=== PATIENT | female | born 1940 | race Caucasian/White ===

== ENCOUNTER 2018-03-06 01:08 | Inpatient (IN) ==
[2018-03-06 02:31] LABS: Baso # (Auto) 0.2 th/mm3 (0.0-0.2); Baso % (Auto) 1.1 % (0.0-2.0); Eos # (Auto) 0.1 th/mm3 (0.0-0.4); Eos % (Auto) 0.8 % (0.0-4.0); Hematocrit 38.4 % (35.0-46.0); Hemoglobin 12.7 gm/dL (11.6-15.3); Lymph # (Auto) 2.5 th/mm3 (1.0-4.8); Lymph % (Auto) 17.8 % (9.0-44.0); Mean Corpuscular HGB Conc 33.1 % (32.0-36.0); Mean Corpuscular Hemoglobin 30.9 pg (27.0-34.0); Mean Corpuscular Volume 93.3 fL (80.0-100.0); Mean Platelet Volume 9.1 fL (7.0-11.0); Mono % (Auto) 7.2 % (0.0-8.0); Neut # (Auto) 10.5 th/mm3 (1.8-7.7); Neut % (Auto) 73.1 % (16.0-70.0); Platelet Count 221 th/mm3 (150-450); Red Blood Count 4.12 mil/mm3 (4.00-5.30); Red Cell Distribution Width 14.2 % (11.6-17.2); White Blood Count 14.3 th/mm3 (4.0-11.0)
[2018-03-06 02:50] LABS: Bilirubin,Urine Negative (Negative); Clarity,Urine Clear (Clear); Color,Urine Yellow (Yellw/Straw); Glucose,Urine (UA) Negative (Negative); Leukocyte Esterase,Urine Negative (Negative); Mucus,Urine Few /lpf (Occasional); Nitrite,Urine Negative (Negative); Specific Gravity,Urine 1.023 (1.002-1.035)
[2018-03-06 02:52] LABS: Alanine Aminotransferase 14 U/L (10-53); Albumin 3.3 g/dL (3.4-5.0); Anion Gap 7 meq/L (5-15); Aspartate Aminotransferase 16 U/L (15-37); Blood Urea Nitrogen 12 mg/dL (7-18); Calcium 8.1 mg/dL (8.5-10.1); Chloride 101 meq/L (98-107); Glomerular Filtration Rate 53 mL/min (>89); Glucose,Random 89 mg/dL (74-106); Potassium 3.8 meq/L (3.5-5.1); Sodium 140 meq/L (136-145)
[2018-03-06 02:56] LABS: Alkaline Phosphatase 54 U/L (45-117); Total Protein 7.1 g/dL (6.4-8.2); Troponin I 0.08 ng/mL (0.02-0.05)
--- NOTE | 2018-03-06 03:01 | XR ---
EXAM DATE: 03/06/2018 2:44 AM EDT AGE/SEX: 77 years / Female INDICATIONS: Shortness of breath. CLINICAL DATA: This is the patient's initial encounter. Patient reports that signs and symptoms have been present for 1 day and indicates a pain score of 0/10. MEDICAL/SURGICAL HISTORY: None. None. COMPARISON: No prior exams available for comparison. FINDINGS: Portable AP view of the chest demonstrates a normal-sized cardiac silhouette. No effusion, consolidat ion, or pneumothorax is identified. The bones and soft tissues demonstrate no acute finding. EKG line s overlie the patient. CONCLUSION: No acute cardiopulmonary abnormality is identified. Electronically signed by: Librado Munroe MD 03/06/2018 3:00 AM EDT
--- NOTE | 2018-03-06 03:40 | CT ---
EXAM DATE: 03/06/2018 3:24 AM EDT AGE/SEX: 77 years / Female INDICATIONS: Weakness and confusion. CLINICAL DATA: This is the patient's initial encounter. Patient reports that signs and symptoms have been present for 1 day and indicates a pain score of 0/10. MEDICAL/SURGICAL HISTORY: Hypertension. Lupus. None. RADIATION DOSE: 38.21 CTDI (mGy) COMPARISON: No prior exams available for comparison. TECHNIQUE: CT of the head without contrast. Using automated exposure control and adjustment of the mA and/or kV according to patient size, radiation dose was kept as low as reasonably achievable to ob tain optimal diagnostic quality images. DICOM format image data is available electronically for revi ew and comparison. FINDINGS: Cerebrum: There is mild to moderate generalized atrophy. Ventricles are normal in size given the deg ree of atrophy present. There is mild periventricular white matter low-attenuation. No midline shift, mass lesion, hemorrhage or acute infarction. No extraaxial fluid collections are seen. Posterior Fossa: The cerebellum and brainstem demonstrate no acute abnormality. The 4th ventricle is midline. The cerebellopontine angle is within normal limits. Extracranial: The visualized sinuses are clear. Skull: The calvaria is intact. No skull fracture. CONCLUSION: 1. No acute intracranial abnormality is identified. 2. There is generalized atrophy and mild periventricular white matter change most likely representin g chronic microvascular ischemia. . Electronically signed by: Librado Munroe MD 03/06/2018 3:39 AM EDT
--- NOTE | 2018-03-06 04:04 | ED ---
HPI General Chief complaint: Weakness Stated complaint: confusion/weakness/diareha Time Seen by Provider: 03/06/18 01:39 Source: patient and family Mode of arrival: wheelchair Limitations: no limitations History of Present Illness HPI narrative: Is a 77-year-old woman presents to the emergency department complaining of weakness. She has felt ill throughout the day today. She drove herself to the store but then the bystander called family to come get her because she was confused, patient does not remember this at all. They fed her and got her back home. But another family came to check on her she was too weak to get off the couch, she was slumped to the side, too weak to move. She had progressive weakness, so they brought her to the emergency department. Patient denies any history of previous similar problems. She does take some sedating medications but denies having taken any change in dose. She is awake and alert, just weak and unable to get up Related Data Home Medications Medication Instructions Recorded Confirmed alprazolam 0.5 mg PO BID PRN 03/06/18 03/06/18 atenolol 50 mg PO DAILY 03/06/18 03/06/18 escitalopram oxalate 20 mg PO DAILY 03/06/18 03/06/18 gabapentin 400 mg PO TID 03/06/18 03/06/18 hydrocodone-acetaminophen 1 tab PO Q6H PRN 03/06/18 03/06/18 hydroxychloroquine 200 mg PO BID 03/06/18 03/06/18 omeprazole 20 mg PO DAILY 03/06/18 03/06/18 triamterene-hydrochlorothiazid 1 tab PO DAILY 03/06/18 03/06/18 Allergies Allergy/AdvReac Type Severity Reaction Status Date / Time No Known Allergies Allergy Verified 03/06/18 01:28 Review of Systems ROS: all other systems reviewed are negative [facility] Medical History Medical History Hypertension (Acute) Lupus (Acute) Social History Social History Substance History: No History of Abuse Second Hand Smoke Exposure: No Smoking Status: Former smoker How Often Do You Have a Drink Containing Alcohol: Never Recent Travel in [facility] within the Last 8 Weeks: No Recent Out of Country Travel within the Last 8 Weeks: No Immunization History Tetanus Immunization: Unsure Hx Influenza Vaccine This Season: No Exam Narrative Exam Narrative: GENERAL: 77-year-old woman, generally well-appearing, no acute distress. SKIN: Focused skin assessment warm/dry. HEAD: Atraumatic. Normocephalic. EYES: Pupils equal and round. No scleral icterus. No injection or drainage. ENT: No nasal bleeding or discharge. Mucous membranes pink and moist. NECK: Trachea midline. No JVD. CARDIOVASCULAR: Regular rate and rhythm. No murmur appreciated. RESPIRATORY: No accessory muscle use. Clear to auscultation. Breath sounds equal bilaterally. GASTROINTESTINAL: Abdomen soft, non-tender, nondistended. Hepatic and splenic margins not palpable. MUSCULOSKELETAL: No obvious deformities. No clubbing. No cyanosis. No edema. NEUROLOGICAL: Awake and alert. No obvious cranial nerve deficits. At that she may have a suggestion of some right-sided facial droop however it is not definite. Motor grossly within normal limits. Normal speech. PSYCHIATRIC: Appropriate mood and affect; insight and judgment normal. Course Initial Documented Vital Signs Temperature 99.0 F 03/06/18 01:13 Pulse Rate 66 03/06/18 01:13 Respiratory Rate 18 03/06/18 01:13 Blood Pressure 143/87 H 03/06/18 01:13 Pulse Oximetry 96 03/06/18 01:13 Last Documented Vital Signs Temperature 99.0 F 03/06/18 01:13 Pulse Rate 66 03/06/18 02:08 Respiratory Rate 20 03/06/18 01:36 Blood Pressure 135/62 03/06/18 01:36 Pulse Oximetry 93 L 03/06/18 02:21 Medical Decision Making [facility] Narrative Medical decision making narrative: 77-year-old woman with generalized weakness, etiology is unclear. She has some urinary symptoms as well. Urine does not show any definite pyuria. I thought she had is some suggestion of of right- sided facial droop initially, this really did not kay out overall her neuro exam seems generally unremarkable. Troponins minimally bump. Do not see any evidence of DC otherwise. At this point recommend admission for further evaluation rule out stroke, rule out ACS, serial enzymes. Medical Screen Exam Complete: Yes Emergency Medical Condition: Yes Lab Data Lab results reviewed: Yes I reviewed the patient's lab results. Result diagrams: 03/06/18 02:10 03/06/18 02:10 Lab Results 03/06/18 03/06/18 03/06/18 Range/Units 02:10 02:10 02:20 WBC 14.3 H (4.0-11.0) th/mm3 RBC 4.12 (4.00-5.30) mil/mm3 Hgb 12.7 (11.6-15.3) gm/dL Hct 38.4 (35.0-46.0) % MCV 93.3 (80.0-100.0) fL MCH 30.9 (27.0-34.0) pg MCHC 33.1 (32.0-36.0) % RDW 14.2 (11.6-17.2) % Plt Count 221 (150-450) th/mm3 MPV 9.1 (7.0-11.0) fL Neut % (Auto) 73.1 H (16.0-70.0) % Lymph % (Auto) 17.8 (9.0-44.0) % [place] % (Auto) 7.2 (0.0-8.0) % Eos % (Auto) 0.8 (0.0-4.0) % Baso % (Auto) 1.1 (0.0-2.0) % Neut # (Auto) 10.5 H (1.8-7.7) th/mm3 Lymph # (Auto) 2.5 (1.0-4.8) th/mm3 [place] # (Auto) 1.0 H (0.0-0.9) th/mm3 Eos # (Auto) 0.1 (0.0-0.4) th/mm3 Baso # (Auto) 0.2 (0.0-0.2) th/mm3 WBC Differential . Differential Comment Auto diff final Sodium 140 (136-145) meq/L Potassium 3.8 (3.5-5.1) meq/L Chloride 101 (98-107) meq/L Carbon Dioxide 32.0 (21.0-32.0) meq/L Anion Gap 7 (5-15) meq/L BUN 12 (7-18) mg/dL Creatinine 1.01 H (0.50-1.00) mg/dL Estimated GFR 53 L (>89) mL/min Random Glucose 89 (74-106) mg/dL Calcium 8.1 L (8.5-10.1) mg/dL Total Bilirubin 0.4 (0.2-1.0) mg/dL AST 16 (15-37) U/L ALT 14 (10-53) U/L Alkaline Phosphatase 54 (45-117) U/L Troponin I 0.08 H (0.02-0.05) ng/mL Total Protein 7.1 (6.4-8.2) g/dL Albumin 3.3 L (3.4-5.0) g/dL Urine Color Yellow (Yellw/Straw) Urine Clarity Clear (Clear) Urine pH 5.0 (5.0-8.5) Ur Specific [place] 1.023 (1.002-1.035) Urine Protein Negative (Neg-Trace) mg/dL Urine Glucose (UA) Negative (Negative) mg/dL Urine Ketones Negative (Negative) mg/dL Urine Occult Blood Small H (Negative) Urine Nitrate Negative (Negative) Urine Bilirubin Negative (Negative) Urine Urobilinogen Less than 2 (Less than 2) mg/dL Ur Leukocyte Esterase Negative (Negative) Urine RBC 6 H (0-3) /hpf Urine WBC 1 (0-5) /hpf Urine Mucus Few H (Occasional) /lpf Micro UA Comment Cath-culture not ind Ur Microscopic Review Not Reportable Urine Culture Comments Cath-cult not ind Imaging Data Radiologist's impression: Head CT 03/06/18 02:06 CONCLUSION: 1. No acute intracranial abnormality is identified. 2. There is generalized atrophy and mild periventricular white matter change most likely representing chronic microvascular ischemia. . Chest X-Ray 03/06/18 02:07 CONCLUSION: No acute cardiopulmonary abnormality is identified. Negative ECG Data Attestation: I personally reviewed and interpreted this ECG as follows: Interpretation: Normal sinus rhythm at a rate is 68, normal axis, normal intervals, no acute ischemia. Discharge Plan Discharge Disposition Patient Disposition: 30 Still Patient Physicians Team ED Provider: Sergio Nayak Primary Care Provider: Sanford Lindo Attending Provider: Daniel Yeung Discharge Interventions Interventions: Vital Signs Last Done: 03/06/18 01:36 Status ED Status: Admitted Patient
[2018-03-06] MEDS ORDERED: Acetaminophen 325 MG Tablet PO PRN (07:55)
[2018-03-06 09:08] LABS: Troponin I 0.08 ng/mL (0.02-0.05)
[2018-03-06 09:20] LABS: CKMB Percent 0.7 % (0.0-4.0); Creatine Kinase MB 2.1 ng/mL (0.5-3.6)
--- NOTE | 2018-03-06 09:59 | P.HPIM ---
History of Present Illness Primary Care Physician: Sanford Lindo MD Chief Complaint: Generalized weakness, confusion History of Present Illness: Mrs. Cedillo is a pleasant 77 y/o female with Lupus, HTN, Hyperlipidemia, and asthma who was [place] the [place] [facility] for generalized weakness and confusion. I spoke with the pts son over the phone this morning who helps provide history as the pt is somewhat of a difficult historian. He reports that his had seen the pt around 1500 yesterday afternoon and she was doing fine. Then in the afternoon the pt had reportedly gone to [place] and was found by a bystander to be very weak and confused. The bystander called the pts son who came to pick her up. The pt reports that she felt ill throughout the day yesterday but couldn't specify why. Her son states that he thought initially that the pt may have taken an extra hydrocodone but the pt is unclear on this. Her son fed her and got her back home, but she was too weak to get off the couch, she was slumped to the side, too weak to move. This is what prompted her evaluation in the ED. This morning pt is more AAOx3 but she has a difficulty with giving history regarding what happened yesterday. She does report that she has had a cough for a few days and a sore throat. Denies any fevers or chills. She reports that her grandson and nephew had been spending time with her lately and both had recently had pneumonia. Her has Alzheimer dementia and was recently put into a alf and pt reports that she has been spending a lot of time at the alf as well. Her CXR in the ED was unrevealing. Her WBC count was elevated at 14 at admission. Denies any vomiting, diarrhea, constipation, headache, dizziness, or palpitations. Past Medical Hx: Asthma Anxiety/Depression Arthritis Chronic pain GERD HTN Hyperlipidemia Lupus RITA Multiple thyroid nodules Vertigo 2D echo (12/03/14) - Mild aortic sclerosis without stenosis - Mildly dilated left atrial chamber - Estimated EF 79% - Mild Mitral regurg, trace tricuspid regurg Past Surgical Hx: Partial thyroidectomy Family Hx: Noncontributory Social Hx: Denies any alcohol, tobacco or illicit drug use - Diagnosis (1) Generalized weakness (2) Confusion (3) HTN (hypertension) (4) Hyperlipidemia (5) Asthma Inpatient Certification: I certify that the inpatient services were ordered in accordance with Medicare regulations governing the order. This includes certification that hospital inpatient services are reasonable and necessary and in the case of services not specified as inpatient-only under 42 CFR 419.22(n), that they are appropriately provided as inpatient services in accordance to with the 2-midnight benchmark under 43 CFR 412.3(e) Review of Systems Constitutional: Reports weakness, Denies chills, Denies fever(s), Denies headache(s) Eyes: Denies double vision, Denies loss of vision Ears, Nose, Mouth, and Throat: Reports sore throat, Denies dizziness, Denies headache(s), Denies nasal discharge, Denies post nasal drip, Denies tongue swelling Cardiovascular: Denies chest pain, Denies shortness of breath Respiratory: Reports cough, Denies coughing up blood, Denies excessive phlegm production, Denies shortness of breath with activity Gastrointestinal: Denies change in stools, Denies constipation, Denies loose stools, Denies vomiting Genitourinary: Denies urinary incontinence, Denies urinary urgency Musculoskeletal: Denies back pain, Denies joint pain Skin/Breast: Denies rash Neurologic: Reports confusion, Reports memory loss PMFSH - History History Provided By: Patient - Medical History Medical History: Medical History (Last Reviewed 03/06/18 @ 04:02 by Sergio Nayak MD) Hypertension Lupus - Tobacco History Second Hand Smoke Exposure: No Smoking Status: Former smoker - Alcohol History How Often Do You Have a Drink Containing Alcohol: Never - Substance Use History Substance History: No History of Abuse - Travel History Recent Travel in the [place] Within the Last 8 Weeks: No Recent Travel Out of the Country Within the Last 8 Weeks: No - Immunization History Tetanus Immunization: Unsure Hx Influenza Vaccine This Season: No Medications and Allergies Active Medications: Active Medications Acetaminophen (Tylenol) 650 mg PO Q4H PRN PRN Reason: Temp > 100.4 Al Hydroxide/Mg Hydroxide (Milk Of Magnesia Liq) 30 ml PO Q12H PRN PRN Reason: Mild Constipation Atenolol (Tenormin) 50 mg PO DAILY GARY Escitalopram Oxalate (Lexapro) 20 mg PO DAILY GARY Ondansetron HCl (Zofran Inj) 4 mg IV.PUSH Q6H PRN PRN Reason: NAUSEA OR VOMITING Pantoprazole Sodium (Protonix) 20 mg PO DAILY GARY Senna/Docusate Sodium (Josie-Colace) 1 tab PO BID GARY Sodium Chloride (Ns Flush) 2 ml IV.FLUSH PRN PRN PRN Reason: FLUSH AFTER USING IV ACCESS Allergies Allergy/AdvReac Type Severity Reaction Status Date / Time No Known Allergies Allergy Verified 03/06/18 01:28 Home Medications Medication Instructions Recorded Confirmed Type alprazolam 0.5 mg PO BID PRN 03/06/18 03/06/18 History atenolol 50 mg PO DAILY 03/06/18 03/06/18 History escitalopram oxalate 20 mg PO DAILY 03/06/18 03/06/18 History gabapentin 400 mg PO TID 03/06/18 03/06/18 History hydrocodone-acetaminophen 1 tab PO Q6H PRN 03/06/18 03/06/18 History hydroxychloroquine 200 mg PO BID 03/06/18 03/06/18 History omeprazole 20 mg PO DAILY 03/06/18 03/06/18 History triamterene-hydrochlorothiazid 1 tab PO DAILY 03/06/18 03/06/18 History Exam Vital signs: Vital Signs 03/06/18 01:13 03/06/18 01:36 03/06/18 02:08 Temperature 99.0 F Pulse Rate 66 66 66 Respiratory Rate 18 20 Blood Pressure 143/87 H 135/62 Pulse Oximetry 96 93 L 03/06/18 02:21 03/06/18 06:17 03/06/18 08:39 Temperature Pulse Rate 73 Respiratory Rate 17 18 Blood Pressure 146/63 H Pulse Oximetry 93 L 94 L Narrative: GENERAL: NAD, Awake and alert SKIN: Warm and dry. HEENT: Atraumatic. Normocephalic. Pupils equal and round. No scleral icterus. No injection or drainage. No nasal bleeding or discharge. Mucous membranes pink and moist. NECK: Trachea midline. No JVD. Tonsillar lymphadenopathy and tenderness on the left side CARDIO: Regular rate and rhythm. 2-3/6 BERT RESP: No accessory muscle use. Wheezing and crackles at the bases bilaterally ABD: +BS, soft, non-tender, nondistended. EXT: Minimal bilateral pedal edema. No obvious deformities. NEURO: Awake and alert.Motor grossly within normal limits. Five out of 5 muscle strength in the arms and legs. Normal speech. PSYCH: Appropriate mood and affect; insight and judgment normal. Results - Labs CBC & Chem 7: 03/06/18 02:10 03/06/18 02:10 Labs: Short CBC 03/06/18 Range/Units 02:10 WBC 14.3 H (4.0-11.0) th/mm3 Hgb 12.7 (11.6-15.3) gm/dL Hct 38.4 (35.0-46.0) % Plt Count 221 (150-450) th/mm3 BMP 03/06/18 02:10 Sodium 140 Potassium 3.8 Chloride 101 Carbon Dioxide 32.0 BUN 12 Creatinine 1.01 H Calcium 8.1 L Cardiac Enzymes 03/06/18 03/06/18 03/06/18 Range/Units 02:10 04:00 08:20 Total Creatine Kinase 297 H (26-192) U/L Troponin I 0.08 H 0.08 H 0.08 H (0.02-0.05) ng/mL Liver Function 03/06/18 Range/Units 02:10 Total Bilirubin 0.4 (0.2-1.0) mg/dL AST 16 (15-37) U/L ALT 14 (10-53) U/L Alkaline Phosphatase 54 (45-117) U/L Albumin 3.3 L (3.4-5.0) g/dL Urine 03/06/18 Range/Units 02:20 Urine Color Yellow (Yellw/Straw) Urine Clarity Clear (Clear) Urine pH 5.0 (5.0-8.5) Ur Specific [place] 1.023 (1.002-1.035) Urine Protein Negative (Neg-Trace) mg/dL Urine Glucose (UA) Negative (Negative) mg/dL - Imaging Impressions Head CT 03/06/18 02:06 CONCLUSION: 1. No acute intracranial abnormality is identified. 2. There is generalized atrophy and mild periventricular white matter change most likely representing chronic microvascular ischemia. Chest X-Ray 03/06/18 02:07 CONCLUSION: No acute cardiopulmonary abnormality is identified. Caprini VTE Risk Assessment Caprini VTE Risk Assessment: Moderate/High Risk (score >= 2) Caprini Risk Assessment Model: Point Value = 1 Point Value = 2 Point Value = 3 Point Value = 5 Age 41-60 Minor surgery BMI > 25 kg/m2 Swollen legs Varicose veins or History of unexplained or recurrent spontaneous Oral contraceptives or hormone replacement Sepsis (< 1 month) Serious lung disease, including pneumonia (< 1 month) Abnormal pulmonary function Acute myocardial infarction Congestive heart failure (< 1 month) History of inflammatory bowel disease Medical patient at bed rest Age 61-74 Arthroscopic surgery Major open surgery (> 45 min) Laparoscopic surgery (> 45 min) Malignancy Confined to bed (> 72 hours) Immobilizing plaster cast Central venous access Age >= 75 History of VTE Family history of VTE Factor V Leiden Prothrombin [id number] Lupus anticoagulant Anticardiolipin antibodies Elevated serum homocysteine Heparin-induced thrombocytopenia Other congenital or acquired thrombophilia Stroke (< 1 month) Elective arthroplasty Hip, pelvis, or leg fracture Acute spinal cord injury (< 1 month) Prophylaxis Regimen: Total Risk Factor Score Risk Level Prophylaxis Regimen 0-1 Low Early ambulation 2 Moderate Order ONE of the following: *Sequential Compression Device (SCD) *Heparin 5000 units SQ BID 3-4 Higher Order ONE of the following medications: *Heparin 5000 units SQ TID *Enoxaparin/Lovenox 40 mg SQ daily (WT < 150 kg, CrCl > 30 mL/min) *Enoxaparin/Lovenox 30 mg SQ daily (WT < 150 kg, CrCl > 10-29 mL/min) *Enoxaparin/Lovenox 30 mg SQ BID (WT < 150 kg, CrCl > 30 mL/min) AND/OR *Sequential Compression Device (SCD) 5 or more Highest Order ONE of the following medications: *Heparin 5000 units SQ TID (Preferred with Epidurals) *Enoxaparin/Lovenox 40 mg SQ daily (WT < 150 kg, CrCl > 30 mL/min) *Enoxaparin/Lovenox 30 mg SQ daily (WT < 150 kg, CrCl > 10-29 mL/min) *Enoxaparin/Lovenox 30 mg SQ BID (WT < 150 kg, CrCl > 30 mL/min) AND *Sequential Compression Device (SCD) Assessment and Plan - Assessment (1) Generalized weakness Code(s): R53.1 - Weakness Status: Acute Plan: Generalized weakness Confusion Possible CAP - Pt is a 77 y/o female with Lupus, HTN, Hyperlipidemia, and asthma who was brought to the ED at [facility] on 03[place]06[place] for generalized weakness and confusion. Pt reports that she has had a cough for a few days and a sore throat. Denies any fevers or chills. She reports that her grandson and nephew had been spending time with her lately and both had recently had pneumonia. Her has Alzheimer dementia and was recently put into a alf and pt reports that she has been spending a lot of time at the alf as well. - Her CXR in the ED was unrevealing. - Her WBC count was elevated at 14 in the ED - UA was negative. - Pt with low grade temp this morning, 99.7 - Obtain blood cultures - Repeat CXR this morning - After blood cultures are drawn given Azithromycin and Rocephin IV - Duonebs Q4H scheduled and Q2H PRN - Supplemental O2 as needed - Tylenol PRN - Zofran PRN - ARIEL - PT evaluation - DVT prophylaxis with SCDs HTN - Cont. Atenolol, hold diuretic for now - Repeat labs in AM - Monitor BP Lupus - Cont. home meds - Hold narcotics and benzos as pt has had some confusion (2) Confusion Code(s): R41.0 - Disorientation, unspecified Status: Acute (3) HTN (hypertension) Code(s): I10 - Essential (primary) hypertension Status: Acute (4) Hyperlipidemia Code(s): E78.5 - Hyperlipidemia, unspecified Status: Acute (5) Asthma Code(s): J45.909 - Unspecified asthma, uncomplicated Status: Acute
--- NOTE | 2018-03-06 10:42 | XR ---
EXAM DATE: 03/06/2018 10:21 AM EDT AGE/SEX: 77 years / Female INDICATIONS: Coughing, short of breath CLINICAL DATA: This is the patient's subsequent encounter. Patient reports that signs and symptoms h ave been present for 2 days and indicates a pain score of 3/10. MEDICAL/SURGICAL HISTORY: Lupus. Hypertension. abdominal pain None. COMPARISON: [facility], CHEST 1V SINGLE AP, 03/06/2018. . FINDINGS: The cardiac silhouette is enlarged in transverse diameter. There is bilateral lower lobe atelectasis versus pneumonia. No pleural effusions are identified. This is new when compared with the prior exam . CONCLUSION: Cardiomegaly. Bibasilar edema versus pneumonia. This is new when compared with the prior exam. Electronically signed by: Alex Torres MD 03/06/2018 10:40 AM EDT
[2018-03-06] MEDS: Azithromycin Inj 500 MG in Sodium Chlor 0.9% Inj 250 ML IV.SIG SCH (12:00)
[2018-03-06] MEDS: guaiFENesin 600 MG ER Tablet PO SCH ×2 (12:00→21:06)
[2018-03-06] MEDS: Hydroxychloroquine 200 MG Tablet PO SCH ×2 (12:00→21:06)
[2018-03-06] MEDS: Gabapentin 400 MG Capsule PO SCH ×2 (13:00→18:00)
[2018-03-06] MEDS: Pantoprazole Sodium 20 MG DR Tablet PO SCH (20:37)
[2018-03-06] MEDS: Atenolol 50 MG Tablet PO SCH (20:38)
[2018-03-06] MEDS: Senna/Docusate Sodium 8.6/50 MG Tablet PO SCH ×2 (20:38→21:07)
--- NOTE | 2018-03-06 23:49 | ECG ---
Date Performed: 03/06/2018 Time Performed: 08:21:06 PTAGE: 77 years EKG: Sinus rhythm NORMAL ECG PREVIOUS TRACING : 03/06/2018 02.23 Since the previous tracing, no significant change noted DOCTOR: Javon Bishop Interpretating Date/Time 03/06/2018 23:47:39
--- NOTE | 2018-03-07 00:05 | ECG ---
Date Performed: 03/06/2018 Time Performed: 02:23:09 PTAGE: 77 years EKG: Sinus rhythm NONSPECIFIC T-WAVE ABNORMALITY BORDERLINE ECG NO PREVIOUS TRACING DOCTOR: Javon Bishop Interpretating Date/Time 03/07/2018 00:04:24
[2018-03-07 06:50] LABS: Baso % (Auto) 0.5 % (0.0-2.0); Eos % (Auto) 0.4 % (0.0-4.0); Hematocrit 34.6 % (35.0-46.0); Hemoglobin 11.8 gm/dL (11.6-15.3); Lymph # (Auto) 1.3 th/mm3 (1.0-4.8); Lymph % (Auto) 13.4 % (9.0-44.0); Mean Corpuscular Hemoglobin 31.5 pg (27.0-34.0); Mean Corpuscular Volume 92.7 fL (80.0-100.0); Mean Platelet Volume 8.8 fL (7.0-11.0); Mono # (Auto) 0.8 th/mm3 (0.0-0.9); Mono % (Auto) 8.6 % (0.0-8.0); Neut # (Auto) 7.6 th/mm3 (1.8-7.7); Neut % (Auto) 77.1 % (16.0-70.0); Platelet Count 187 th/mm3 (150-450); Red Blood Count 3.73 mil/mm3 (4.00-5.30); Red Cell Distribution Width 14.1 % (11.6-17.2); White Blood Count 9.9 th/mm3 (4.0-11.0)
[2018-03-07 07:19] LABS: Calcium 8.2 mg/dL (8.5-10.1); Carbon Dioxide 31.8 meq/L (21.0-32.0); Potassium 3.8 meq/L (3.5-5.1)
--- NOTE | 2018-03-07 08:27 | P.PNIM ---
Subjective Interval history: Pt was able to be weaned off the supplemental O2 last night. She is somewhat confused this morning about timing of how long she has been here Physical Exam Vital signs: Vital Signs 03/06/18 08:39 03/06/18 09:25 03/06/18 11:00 Temperature 99.7 F H Pulse Rate 72 88 Respiratory Rate 18 18 Blood Pressure 134/59 L Pulse Oximetry 90 L 96 03/06/18 12:20 03/06/18 15:25 03/06/18 16:25 Temperature 97.4 F L Pulse Rate 87 62 86 Respiratory Rate 16 18 Blood Pressure 123/60 Pulse Oximetry 95 96 03/06/18 19:45 03/06/18 19:52 03/06/18 20:00 Temperature 99.8 F H Pulse Rate 79 88 84 Respiratory Rate 18 20 18 Blood Pressure 137/60 Pulse Oximetry 93 L 96 03/06/18 23:17 03/06/18 23:36 03/07/18 00:00 Temperature 98.5 F Pulse Rate 73 72 86 Respiratory Rate 16 18 Blood Pressure 135/63 Pulse Oximetry 95 03/07/18 03:44 03/07/18 04:00 03/07/18 07:49 Temperature 98.7 F Pulse Rate 75 74 70 Respiratory Rate 18 26 H Blood Pressure 116/53 L Pulse Oximetry 95 94 L 03/07/18 07:53 Temperature 98.5 F Pulse Rate 81 Respiratory Rate 12 Blood Pressure 119/55 L Pulse Oximetry 92 L Intake & Output 03/06/18 03/07/18 03/07/18 18:59 06:59 18:59 Intake Total 350 / 350 Balance 350 / 350 Intake: IV 350 / 350 Azithromycin Inj 500 MG In NS 250 / 250 Inj 250 ML @ 250 mls/hr IV.SIG Q24H GARY Rx#:[id number] Rocephin Inj 1,000 MG In NS Inj 100 / 100 100 ML @ 200 mls/hr IV.SIG Q24H GARY Rx#:[id number] Narrative: General: NAD, Awake, alert, confused Chest: Crackles on the right base Cardiac: Regular Abd: +BS, soft ND/NT Ext: No edema Results - Labs CBC & Chem 7: 03/07/18 06:06 03/07/18 06:06 Laboratory Results - last 24 hr 03/06/18 03/07/18 03/07/18 08:20 06:06 06:06 WBC 9.9 RBC 3.73 L Hgb 11.8 Hct 34.6 L MCV 92.7 MCH 31.5 MCHC 34.0 RDW 14.1 Plt Count 187 MPV 8.8 Neut % (Auto) 77.1 H Lymph % (Auto) 13.4 [place] % (Auto) 8.6 H Eos % (Auto) 0.4 Baso % (Auto) 0.5 Neut # (Auto) 7.6 Lymph # (Auto) 1.3 [place] # (Auto) 0.8 Eos # (Auto) 0.0 Baso # (Auto) 0.0 WBC Differential . Differential Comment Auto diff final Sodium 144 Potassium 3.8 Chloride 104 Carbon Dioxide 31.8 Anion Gap 8 BUN 9 Creatinine 0.76 Estimated GFR 74 L Random Glucose 97 Calcium 8.2 L Total Creatine Kinase 297 H CK-MB (CK-2) 2.1 CK-MB (CK-2) % 0.7 Troponin I 0.08 H - Imaging Impressions Head CT 03/06/18 02:06 CONCLUSION: 1. No acute intracranial abnormality is identified. 2. There is generalized atrophy and mild periventricular white matter change most likely representing chronic microvascular ischemia. Chest X-Ray 03/06/18 02:07 CONCLUSION: No acute cardiopulmonary abnormality is identified. Chest X-Ray 03/06/18 09:22 CONCLUSION: Cardiomegaly. Bibasilar edema versus pneumonia. This is new when compared with the prior exam. Assessment and Plan - Assessment (1) Generalized weakness Code(s): R53.1 - Weakness Status: Acute Plan: Generalized weakness Confusion Possible CAP - Pt is a 77 y/o female with Lupus, HTN, Hyperlipidemia, and asthma who was brought to the ED at [facility] on 03/06/18 for generalized weakness and confusion. Pt reports that she has had a cough for a few days and a sore throat. Denies any fevers or chills. She reports that her grandson and nephew had been spending time with her lately and both had recently had pneumonia. Her has Alzheimer dementia and was recently put into a [facility] and pt reports that she has been spending a lot of time at the [facility] as well. - Her CXR in the ED was unrevealing. - Her WBC count was elevated at 14 in the ED - UA was negative. - Pt with low grade temp fevers on 03/06 - Repeat CXR (03/06/18) --> Cardiomegaly. Bibasilar edema versus pneumonia. This is new when compared with the prior exam. - Blood cultures are pending. - Cont. Azithromycin and Rocephin IV - Duonebs Q4H scheduled and Q2H PRN - Supplemental O2 as needed - Tylenol PRN - Zofran PRN - ARIEL - PT evaluation - DVT prophylaxis with SCDs HTN - Cont. Atenolol, hold diuretic for now as BP is low normal - Monitor BP Lupus - Cont. home meds - Hold narcotics and benzos as pt has had some confusion The exam, history, and the medical decision-making described in the above note were completed with the assistance of the mid-level provider. I reviewed and agree with the findings presented. I attest that I had a [id number] encounter with the patient on the same day, and personally performed and documented my assessment and findings in the medical record. community aquired pna presenting with cough/fever/confusion. 07/04 blood cx gpc. await further ID...[email or web address]. IF true positive cx will need repeat blood cx and echo. cont abx. oob/PT. not ready for dc. (2) Confusion Code(s): R41.0 - Disorientation, unspecified Status: Acute (3) HTN (hypertension) Code(s): I10 - Essential (primary) hypertension Status: Acute (4) Hyperlipidemia Code(s): E78.5 - Hyperlipidemia, unspecified Status: Acute (5) Asthma Code(s): J45.909 - Unspecified asthma, uncomplicated Status: Acute
[2018-03-07] MEDS: Gabapentin 400 MG Capsule PO SCH ×3 (10:02→17:32)
[2018-03-07] MEDS: Pantoprazole Sodium 20 MG DR Tablet PO SCH (10:02)
[2018-03-07] MEDS: Hydroxychloroquine 200 MG Tablet PO SCH ×2 (10:02→21:25)
[2018-03-07] MEDS: Atenolol 50 MG Tablet PO SCH (10:02)
[2018-03-07] MEDS: Senna/Docusate Sodium 8.6/50 MG Tablet PO SCH ×2 (10:03→21:24)
[2018-03-07] MEDS: guaiFENesin 600 MG ER Tablet PO SCH ×2 (10:03→21:24)
--- NOTE | 2018-03-07 12:56 | P.DCO ---
- Physical Therapy Order: Evaluate and treat - Home Health Nursing Order: Medical education, Signs/symptoms of disease process, Nursing assessment with vital signs - Certification I have seen patient Betsy Cedillo on 03/07/18. My clinical findings support the need for the requested home health care services because: Deconditioned with increased weakness I certify that my clinical findings support that this patient is homebound because: Unsteady gait/balance
[2018-03-07] MEDS: Azithromycin Inj 500 MG in Sodium Chlor 0.9% Inj 250 ML IV.SIG SCH (13:29)
[2018-03-07] MEDS ORDERED: Enoxaparin Inj 30 MG/0.3 ML Syringe SQ SCH (14:00)
[2018-03-08] MEDS: Atenolol 50 MG Tablet PO SCH (08:57)
[2018-03-08] MEDS: guaiFENesin 600 MG ER Tablet PO SCH (08:57)
[2018-03-08] MEDS: Senna/Docusate Sodium 8.6/50 MG Tablet PO SCH (08:57)
[2018-03-08] MEDS: Gabapentin 400 MG Capsule PO SCH (08:57)
[2018-03-08] MEDS: Pantoprazole Sodium 20 MG DR Tablet PO SCH (08:57)
[2018-03-08] MEDS: Hydroxychloroquine 200 MG Tablet PO SCH (09:00)
[2018-03-08 09:08] VITALS: BP 145/64; PULSE 75; RESP 20; TEMP 98.3
[2018-03-08 09:14] VITALS: O2SAT 93
--- NOTE | 2018-03-08 09:18 | P.PNIM ---
Subjective Interval history: pt very eager for dc. answering my questions appropriately this AM. she says son is already on the way. Physical Exam Vital signs: Vital Signs 03/07/18 09:55 03/07/18 11:21 03/07/18 11:47 Temperature 97.7 F Pulse Rate 72 81 Respiratory Rate 20 16 Blood Pressure 116/53 L Pulse Oximetry 94 L 03/07/18 16:00 03/07/18 17:52 03/07/18 17:53 Temperature 98.3 F Pulse Rate 65 69 Respiratory Rate 19 18 Blood Pressure 119/57 L Pulse Oximetry 97 94 L 03/07/18 19:27 03/07/18 20:00 03/07/18 23:30 Temperature 98.2 F Pulse Rate 72 73 70 Respiratory Rate 16 17 Blood Pressure 112/98 H Pulse Oximetry 96 03/08/18 00:00 03/08/18 04:00 03/08/18 08:00 Temperature 98.1 F 97.2 F L 98.3 F Pulse Rate 73 79 75 Respiratory Rate 18 18 20 Blood Pressure 138/60 135/71 145/64 H Pulse Oximetry 97 92 L 93 L Intake & Output 03/07/18 03/08/18 03/08/18 18:59 06:59 18:59 Intake Total 350 / 350 0 / 0 Output Total 0 / 0 Balance 350 / 350 0 / 0 Weight 88.3 kg Intake: IV 350 / 350 Azithromycin Inj 500 MG In NS 250 / 250 Inj 250 ML @ 250 mls/hr IV.SIG Q24H GARY Rx#:[id number] Rocephin Inj 1,000 MG In NS Inj 100 / 100 100 ML @ 200 mls/hr IV.SIG Q24H GARY Rx#:[id number] Oral 0 / 0 Output: Urine 0 / 0 Other: Date of Last Bowel Movement 03/06/18 nad. no labored breathing good air entry. few scattered areas of rhonci that clear with coughing abd s/nt ext no edema Results - Labs CBC & Chem 7: 03/07/18 06:06 03/07/18 06:06 Microbiology 03/07/18 14:30 Urine - Random Urine Streptococcus pneumoniae Antigen (M - Final Presumptive negative for streptococcus pneumoniae antigen, suggesting no current or recent infection. Infection due to Streptococcus pneumoniae cannot be ruled out since the antigen present in the sample may be below the detection limit of the test. 03/07/18 14:30 Urine - Random Urine Legionella Antigen - Final Presumptive negative for Legionella pneumophila serogroup 1 antigen in urine, suggesting no recent or recurrent infection. Infection due to Legionella cannot be ruled out since other serogroups and species may cause disease, antigen may not be present in urine in early infection, and the level of antigen present in the urine may be below the detection limit of the test. 03/06/18 09:32 Blood - Peripheral Aerobic Blood Culture - Preliminary Staphylococcus coag negative 03/06/18 09:32 Blood - Peripheral Anaerobic Blood Culture - Preliminary No growth in 1 day 03/06/18 09:35 Blood - Peripheral Aerobic Blood Culture - Preliminary No growth in 1 day 03/06/18 09:35 Blood - Peripheral Anaerobic Blood Culture - Preliminary No growth in 1 day Assessment and Plan - Assessment (1) Generalized weakness Code(s): R53.1 - Weakness Status: Acute Plan: Generalized weakness Confusion CAP - Pt is a 77 y/o female with Lupus, HTN, Hyperlipidemia, and asthma who was brought to the ED at [facility] on 03/06/18 for generalized weakness and confusion. Pt reports that she has had a cough for a few days and a sore throat. Denies any fevers or chills. She reports that her grandson and nephew had been spending time with her lately and both had recently had pneumonia. Her has Alzheimer dementia and was recently put into a [facility] and pt reports that she has been [facility] a [facility] of [facility] as well. - Her CXR in the ED was unrevealing. - Her WBC count was elevated at 14 in the ED - UA was negative. - Pt with fevers on 03/06 - Repeat CXR (03/06/18) --> Cardiomegaly. Bibasilar edema versus pneumonia. This is new when compared with the prior exam. - Blood cultures are 1/4 coag neg staff felt to be contamination. Pt ambulating eager for dc home today with her son. will prescribe course of levaquin for her pneumonia. she needs to f/u with pcp next week for recheck. dc with [facility]/pt evaluation. HTN - Cont.home meds. Lupus - Cont. home meds (2) Confusion Code(s): R41.0 - Disorientation, unspecified Status: Acute (3) HTN (hypertension) Code(s): I10 - Essential (primary) hypertension Status: Acute (4) Hyperlipidemia Code(s): E78.5 - Hyperlipidemia, unspecified Status: Acute (5) Asthma Code(s): J45.909 - Unspecified asthma, uncomplicated Status: Acute
[2018-03-08] MEDS ORDERED: levoFLOXacin 500 MG Tablet PO SCH (10:00)
== END 2018-03-08 11:55 | disposition home health service (06) ==
LOC: NEPC 01:08 → NEDA 03:57 → NEPGCP 08:23 → N04 03-07 15:03
PROVIDERS: ADMIT Hospitalist; ATTEND Hospitalist